=== PATIENT | male | born 1950 | race Caucasian/White ===

== ENCOUNTER 2016-11-04 05:53 | Day surgery (SDC) | payer BC ==
[~2016-11-04] VITALS: Ht 172.7 cm; Wt 103.6 kg
--- NOTE | ~2016-11-04 | OR ---
PATIENT'S NAME: MANJU BOOKER [facility] AGE: 66 Y [address] ROOM: [address] [place], [place] [address] LOCATION: [facility] ADMIT DATE: 11/04/2016 OR/Procedure Report DISCHARGE DATE: 11/05/2016 FAMILY PHYSICIAN: Gabriel Gupta MD ATTENDING PHYSICIAN: Yasmeen Lehman SURGEON: Yasmeen Lehman MD WAREHOUSE SORTER: Marely Berry. DATE OF PROCEDURE: 11/04/2016 PREOPERATIVE DIAGNOSIS: Cervical spondylosis with radiculopathy. POSTOPERATIVE DIAGNOSIS: Cervical spondylosis with radiculopathy. PROCEDURES PERFORMED: 1. Anterior cervical diskectomy with decompression of neural elements and foraminotomy at C4-5. 2. Anterior cervical diskectomy with decompression of neural elements and foraminotomy at C5-6. 3. Structural and morcellized allograft fusion at C4-5. 4. Structural and morselized allograft fusion at C5-6. 5. Use of [place] Elite plate by [employer] for anterior plating. ANESTHESIA: General. ANESTHESIA PROVIDER: Tuan Gonzales MD HISTORY: This patient is a 66-year-old male who presented with neck pain radiating down his right arm as far as the thumb and adjoining fingers. He said sometimes he felt as if the thumb was going to explode. Cervical spine MRI showed foraminal stenosis bilaterally at C4-5 and more to the right side at C5-6, also with some spinal stenosis at C5-6. I discussed the findings with the patient and recommended surgery. Surgery was based on the fact that the patient already had some atrophy of his muscles developing. We went over the benefits of the surgery and also discussed the risks and alternatives. The patient consented to surgery and was brought to the operating room for procedure. PROCEDURE IN DETAIL: In the operating room, the patient was placed in the supine position. Anesthesia was induced, and he was intubated. His head was kept in a gel donut, and a roll was placed under his shoulders. The incision line was marked out along the anterior border of the sternomastoid muscle. The whole area was prepped and draped in a sterile fashion. Local anesthesia was infiltrated. A #10 blade was used to open the incision and to deepen it to the platysma layer. The platysma was also divided. PATIENT'S NAME: MANJU BOOKER [facility] AGE: 66 Y [address] ROOM: [id number] [place], [place] [address] LOCATION: [facility] ADMIT DATE: 11/04/2016 OR/Procedure Report DISCHARGE DATE: 11/05/2016 FAMILY PHYSICIAN: Gabriel Gupta MD ATTENDING PHYSICIAN: Yasmeen Lehman Further dissection along the anterior border of the sternomastoid brought us to the surface of the spine. There were anterior osteophytes in some disk space indicating the likely location of our stenosis. The longus colli muscles were dissected off the anterior surface of the spine. v belt builder retractors were used to hold the longus coli away from the operative field. Intraoperative x-ray was obtained to verify that we were at the desired level. A microscope was brought in at this point, and under microscopic vision, diskectomy was carried out at C4-5 and C5-6. For each level, the disk was incised, and pituitary rongeur was used to pull out disk material. Curettes were then used to scrape down more disk material, which was removed with a pituitary rongeur. The distraction pins were used to help open up the disk spaces so we could see the deeper areas where the posterior osteophytes were contributing to the stenosis. The posterior longitudinal ligament was opened at each level, and the #2 Kerrison was used to carry out foraminotomies. The patient's symptoms were worse on the right side at C5-C6, and a more extensive decompression of these foramen was done as a result of that. At the end of the procedure, the dura and the nerve roots at both levels were satisfactorily decompressed. The endplates were also shaved down in preparation for fusion. Appropriate-sized pieces of allograft bone were then selected and were filled with demineralized bone matrix, i.e., morselized allograft. These pieces of bone were inserted into C4-5 and C5-6 and had a very snug fit. The [place] Elite plate was then used to reinforce the fusion. Final irrigation was carried out, and hemostasis was achieved. The belt line feeder retractors were then removed. The incision was closed in layers using appropriate suture materials. Dermabond was used to close the skin. A sterile dressing was applied. The patient's anesthesia was reversed. He was extubated and taken back to the recovery room to complete his recovery. I was present at and performed every aspect of this procedure, assisted at some stages by the operating room nurses. There were no apparent intraoperative complications. Swabs, needles, and instruments were all accounted for at the end of the case. I expect the patient to benefit from this procedure. YASMEEN LEHMAN MD PATIENT'S NAME: MANJU BOOKER [facility] AGE: 66 Y [address] ROOM: [place] [address] LOCATION: [facility] ADMIT DATE: 11/04/2016 OR/Procedure Report DISCHARGE DATE: 11/05/2016 FAMILY PHYSICIAN: Gabriel Gupta MD ATTENDING PHYSICIAN: Yasmeen LehmanO/modl /[id number] CC: Gabriel Gupta MD d: 11/05/16 1139 t: 11/12/162019, OPERATIVE SUMMARY
--- NOTE | ~2016-11-04 | DS ---
PATIENT'S NAME: MANJU BOOKER [facility] AGE: 66 Y [address] ROOM: [address] [address] LOCATION: [facility] ADMIT DATE: 11/04/2016 Discharge Summary DISCHARGE DATE: 11/05/2016 FAMILY PHYSICIAN: Gabriel Gupta MD ATTENDING PHYSICIAN: Yasmeen Jennings REASON FOR ADMISSION: The patient was a scheduled admission for an elective procedure. The elective procedure was anterior cervical diskectomy with fusion at C4-C5 and C5-C6. The patient had presented with clinical and radiological findings consistent with lumbar stenosis with radiculopathy. TREATMENT RENDERED: The patient was taken to the operating room on the day of admission and underwent the intended surgery. The surgery was uncomplicated. His postoperative course has been uneventful. He is not having any of the preoperative pain. He just has some raspiness of his voice. The dressing is intact on his neck. The patient has done really well and is ready for discharge today. I have therefore discharge him and I will follow up with him in [place] next time. FINAL DIAGNOSIS: Cervical spondylosis with radiculopathy. MD DURAN SANTOSO/modl /[id number] CC: Gabriel Gupta MD d: 11/06/163 t: 11/12/162022, DISCHARGE SUMMARY
[~2016-11-04 05:53] MED LIST: ASPIRIN EC81 MG PO; BYSTOLIC10 MG PO; CRESTOR5 MG PO; DIOVAN320 MG PO; FLEXERIL10 MG PO; MEN'S ONE DAIL1 EACH PO; MOBIC7.5 MG PO; NORVASC5 MG PO; PLAVIX75 MG PO; PROTONIX40 MG PO
--- NOTE | 2016-11-04 14:50 | NUR ---
Introduced self/role to patient. He lives in [place], [place] with his Yolanda. He didn't anticipate any discharge needs. Wrote my name on his marker board.
--- NOTE | 2016-11-04 17:09 | NUR ---
Significant Event: Pt received from pacu @ 1215. will have 4th hourly vs due @ 1900. CSM WNL. Neck dressing c/d/i. Ice bag to incision. Dilausis IV @ 1336, refused po meds when offered. Feels better. Has voided in BR and amb in parks with [facility]. Plans on discharge tomorrow. Follow up:
--- NOTE | 2016-11-05 04:54 | NUR ---
Significant Event: A/O X 3. SAT UP IN CHAIR, AMBULATED IN HALLS X 2 WITH GAITBELT AND ONE ASSIST, GOOD TOLERANCE. VOIDED X 5 IN BR AND URINAL. RIGHT ANTERIOR NECK DRSGS DRY-INTACT. ICE BAG TO SITE. C/O SORE THROAT DISCOMFORT, NO PROBLEM SWALLOWING. HAD NORCO TAB ONE AT 2247 FOR PAIN RATE 4 LATER A 3, TOLERABLE. OFFERED PAIN MED LATER, REFUSED, COMFORTABLE AT 3. BILATERAL CALF PNEUMATICS ON. INCENTIVE 2500. SATS 91%,94%,95% 0N ROOMAIR. DENIES NUMBNESS OR TINGLING TO UPPER EXTREMITIES. MOVES ALL 4 EXTREMITIES. Follow up:
--- NOTE | 2016-11-05 10:34 | NUR ---
Patient had no queations or concerns about discharge instructions. Shower gahirads wnet home and extra dressing sent home with patient. Patient was told to keep dressing dry for 5 days and then remove. Patient was not taking any pain medications. Patient refused. [facility] with at 1030.
== END 2016-11-05 10:34 | disposition disaster alternative care site (69) ==
LOC: GSDC 05:53 → G3N 05:53 → GSDC 11-05 10:34
PROC: 0RB30ZZ Excision of Cervical Vertebral Disc, Open Approach (ICD-10-PCS; principal; 2016-11-04)
PROC: 0RG20K0 Fusion of 2 or more Cervical Vertebral Joints with Nonautologous Tissue Substitute, Anterior Approach, Anterior Column, Open Approach (ICD-10-PCS; 2016-11-04)
DX: M47.22 Other spondylosis with radiculopathy, cervical region (principal); Z90.49 Acquired absence of other specified parts of digestive tract; Z98.890 Other specified postprocedural states
CPT/HCPCS: C1713; C1751; J0690; J1100; J1170; J1885; J2405; J3010; J7030